=== PATIENT | female | born 1965 | race Caucasian/White ===

== ENCOUNTER 2017-09-26 04:55 | Inpatient (IN) | payer OTHER, MEDICARE ==
[~2017-09-26] VITALS: Ht 167.6 cm; Wt 100.4 kg
[2017-09-26] MEDS ORDERED: SODIUM CHLORIDE FLUSH 10ML SYR IVF ONE (05:30)
[2017-09-26] MEDS ORDERED: MORPHINE SULFATE 4 MG/ML, 1ML IVPush PRN ×2 (05:30→17:30)
[2017-09-26] MEDS ORDERED: SODIUM CHLORIDE 0.9% 1,000ML IVBOLUS ONE (05:30)
[2017-09-26] MEDS ORDERED: MORPHINE SULFATE 4 MG/ML, 1ML ONE (05:46)
[2017-09-26 05:57] LABS: BASOPHILS # (AUTO) 0.02 x10^3/uL (0-0.1); BASOPHILS % (AUTO) 0 % (0-1); EOSINOPHILS # (AUTO) 0.12 x10^3/uL (0-0.4); EOSINOPHILS % (AUTO) 1 % (1-7); LYMPHOCYTES # (AUTO) 1.54 x10^3/uL (1-3.4); LYMPHOCYTES % (AUTO) 16 % (22-44); MD NO; MEAN CORPUSCULAR HEMOGLOBIN 30.8 pg (27.0-34.8); MEAN CORPUSCULAR HGB CONC 33.9 g/dL (32.4-35.8); MEAN PLATELET VOLUME 8.2 fL (7.4-10.4); MONOCYTES # (AUTO) 0.79 x10^3/uL (0.2-0.8); MONOCYTES % (AUTO) 8 % (2-9); NEUTROPHILS # (AUTO) 7.48 x10^3/uL (1.8-6.8); NEUTROPHILS % (AUTO) 75 % (42-75); PLATELET COUNT 250 x10^3/uL (130-400); RED CELL DISTRIBUTION WIDTH 12.9 % (9.6-15.2)
[2017-09-26 06:06] LABS: ALANINE AMINOTRANSFERASE 41 U/L (12-78); ANION GAP 9 mmol/L (5-15); CALCIUM 9.4 mg/dL (8.5-10.1); CHLORIDE 109 mmol/L (98-107); CREATININE 1.34 mg/dL (0.55-1.02)
[2017-09-26 06:09] LABS: MICROSCOPIC INDICATED
[2017-09-26 06:10] LABS: CULTURE INDICATED? YES
[2017-09-26 06:11] LABS: ALKALINE PHOSPHATASE 65 U/L (45-117); BILIRUBIN,TOTAL 0.6 mg/dL (0.2-1.0); TOTAL PROTEIN 7.5 g/dL (6.4-8.2)
[2017-09-26 06:12] LABS: INTERNATIONAL NORMALIZED RATIO 0.96 (0.93-1.1)
[2017-09-26] MEDS ORDERED: OMNIPAQUE 350 MG/ML, 100ML BOTTLE ONE (06:45)
[2017-09-26] MEDS ORDERED: CEFTRIAXONE PMX 1GM/50ML 50 ML IV ONE (07:00)
[2017-09-26] MEDS ORDERED: CEFTRIAXONE PMX 1GM/50ML 50 ML ONE (07:12)
[2017-09-26] MEDS ORDERED: SODIUM CHLORIDE 0.9% 1,000 ML IV SCH (09:00)
[2017-09-26 09:22] VITALS: BP 128/76
[2017-09-26 09:30] VITALS: BP 128/76
[2017-09-26] MEDS ORDERED: morphine SULFATE 10 MG/ML, 1ML IVPush PRN ×2 (09:30→11:00)
[2017-09-26] MEDS: CEFTRIAXONE PMX 2GM/50ML 50 ML IV SCH (11:00)
[2017-09-26] MEDS ORDERED: ONDANSETRON 2MG/ML, 2ML IVPush PRN (11:00)
[2017-09-26] MEDS ORDERED: ONDANSETRON ODT 4 MG PO PRN (11:00)
[2017-09-26] MEDS: SODIUM CHLORIDE 0.9% 1,000 ML IV SCH ×2 (11:00→20:03)
[2017-09-26] MEDS ORDERED: ACETAMINOPHEN 325 MG TABLET PO PRN ×2 (11:00→17:30)
[2017-09-26] MEDS ORDERED: hydrALAzine 20 MG/ML, 1ML IVPush PRN (11:00)
[2017-09-26 11:11] LABS: FREE T4 (FREE THYROXINE) 0.95 ng/dL (0.76-1.46); THYROID STIMULATING HORMONE 0.717 mIU/L (0.358-3.740)
[2017-09-26 13:47] VITALS: BP 124/80
[2017-09-26] MEDS: morphine SULFATE 10 MG/ML, 1ML IVPush PRN ×2 (13:58→20:02)
[2017-09-26] MEDS ORDERED: MIDAZOLAM 1 MG/ML, 2ML ONE (16:45)
[2017-09-26] MEDS ORDERED: FENTANYL PF 250 MCG/5ML ONE (16:45)
[2017-09-26] MEDS ORDERED: DEXAMETHASONE 4 MG/ML, 1ML ONE (16:47)
[2017-09-26] MEDS ORDERED: PROPOFOL 10 MG/ML, 20ML ONE (16:47)
[2017-09-26] MEDS ORDERED: ONDANSETRON 2MG/ML, 2ML ONE (16:47)
[2017-09-26] MEDS ORDERED: OMNIPAQUE 350 MG/ML, 50 ML BOTTLE ONE (17:29)
[2017-09-26] MEDS ORDERED: OXYcodone 5 MG/5 ML ORAL.SOL UDC PO PRN (17:30)
[2017-09-26] MEDS ORDERED: ONDANSETRON ODT 8 MG PO PRN (17:30)
[2017-09-26] MEDS ORDERED: MEPERIDINE/PF 25MG/0.5ML IVPush PRN (17:30)
[2017-09-26] MEDS ORDERED: PROMETHAZINE 12.5 MG SUPP PR PRN (17:30)
[2017-09-26] MEDS ORDERED: FENTANYL PF 100 MCG/2ML IV PRN (17:30)
[2017-09-26] MEDS ORDERED: HYDROcodone/APAP 7.5-325MG/15ML UDC ONE (17:46)
[2017-09-26 20:09] VITALS: BP 115/80
[2017-09-26] MEDS: HYDROcodone/APAP 5/325 TABLET PO PRN (21:36)
[2017-09-27 01:48] VITALS: BP 108/74
[2017-09-27] MEDS: SODIUM CHLORIDE 0.9% 1,000 ML IV SCH ×2 (03:23→11:29)
[2017-09-27] MEDS: morphine SULFATE 10 MG/ML, 1ML IVPush PRN (03:23)
[2017-09-27 04:57] LABS: BASOPHILS # (AUTO) 0.02 x10^3/uL (0-0.1); BASOPHILS % (AUTO) 0 % (0-1); EOSINOPHILS # (AUTO) 0.21 x10^3/uL (0-0.4); EOSINOPHILS % (AUTO) 3 % (1-7); LYMPHOCYTES # (AUTO) 2.24 x10^3/uL (1-3.4); LYMPHOCYTES % (AUTO) 34 % (22-44); MD NO; MEAN CORPUSCULAR HEMOGLOBIN 31.1 pg (27.0-34.8); MEAN CORPUSCULAR HGB CONC 33.8 g/dL (32.4-35.8); MEAN PLATELET VOLUME 8.4 fL (7.4-10.4); MONOCYTES # (AUTO) 0.39 x10^3/uL (0.2-0.8); MONOCYTES % (AUTO) 6 % (2-9); NEUTROPHILS # (AUTO) 3.81 x10^3/uL (1.8-6.8); NEUTROPHILS % (AUTO) 57 % (42-75); PLATELET COUNT 249 x10^3/uL (130-400); RED BLOOD COUNT 5.02 x10^6/uL (3.82-5.3); RED CELL DISTRIBUTION WIDTH 13.3 % (9.6-15.2)
[2017-09-27 05:02] LABS: CHLORIDE 111 mmol/L (98-107)
[2017-09-27 05:09] LABS: ALANINE AMINOTRANSFERASE 33 U/L (12-78); ALBUMIN 3.8 g/dL (3.4-5.0); ALKALINE PHOSPHATASE 64 U/L (45-117); ANION GAP 9 mmol/L (5-15); BILIRUBIN,TOTAL 0.7 mg/dL (0.2-1.0); CALCIUM 8.8 mg/dL (8.5-10.1); CREATININE 1.06 mg/dL (0.55-1.02); TOTAL PROTEIN 7.4 g/dL (6.4-8.2)
[2017-09-27] MEDS: HYDROcodone/APAP 5/325 TABLET PO PRN ×2 (06:36→11:29)
[2017-09-27 07:39] VITALS: BP 131/82
[2017-09-27] MEDS: CEFTRIAXONE PMX 2GM/50ML 50 ML IV SCH (11:30)
== END 2017-09-27 15:05 | disposition left against medical advice (07) | DRG 853 ==
LOC: ED 06:03 → EDIP 06:51 → 3NE 07:55
PROVIDERS: ADMIT Hospitalist; ATTEND Internal Medicine
PROC: 0TC68ZZ Extirpation of Matter from Right Ureter, Via Natural or Artificial Opening Endoscopic (ICD-10-PCS; 2017-09-26)
PROC: BT1D1ZZ Fluoroscopy of Right Kidney, Ureter and Bladder using Low Osmolar Contrast (ICD-10-PCS; 2017-09-26)
PROC: 0T768DZ Dilation of Right Ureter with Intraluminal Device, Via Natural or Artificial Opening Endoscopic (ICD-10-PCS; principal; 2017-09-26 17:00)
DX: A41.9 Sepsis, unspecified organism (principal); N17.0 Acute kidney failure with tubular necrosis; N13.2 Hydronephrosis with renal and ureteral calculous obstruction; N39.0 Urinary tract infection, site not specified; E66.01 Morbid (severe) obesity due to excess calories; Z68.35 Body mass index [BMI] 35.0-35.9, adult; K59.00 Constipation, unspecified; Z80.8 Family history of malignant neoplasm of other organs or systems; Z88.0 Allergy status to penicillin
CPT/HCPCS: 36415; 74177; 74420; 80053; 81001; 82360; 83605; 83690; 83735; 84100; 84439; 84443; 84703; 85025; 85610; 87040; 87086; 88300; 93005; 96361; 96374; J0696; J1100; J2250; J2405; J2704; J3010; Q9967; C1758; C2617; J2270; J7030

== ENCOUNTER 2018-01-30 09:46 | Day surgery (SDC) | payer OTHER, MEDICARE ==
[~2018-01-30] VITALS: Ht 167.6 cm; Wt 98.0 kg
[2018-01-30 10:40] VITALS: BP 130/85
[2018-01-30] MEDS ORDERED: CYCL-259 PO (10:56)
[2018-01-30] MEDS ORDERED: ESCI20TA PO (10:56)
[2018-01-30] MEDS ORDERED: OXYC30TA66 PO (10:56)
[2018-01-30] MEDS ORDERED: TOPI200C6 PO (10:56)
[2018-01-30] MEDS ORDERED: GABA300C10 PO (10:56)
[2018-01-30] MEDS ORDERED: ACETAMINOPHEN 500 MG TABLET PO ONE (11:00)
[2018-01-30] MEDS ORDERED: LIDOCAINE-MPF 1%, 2ML INFIL ONE (11:00)
[2018-01-30] MEDS ORDERED: ONDANSETRON ODT 8 MG PO ONE (11:00)
[2018-01-30] MEDS ORDERED: ONDANSETRON ODT 8 MG ONE (11:10)
[2018-01-30] MEDS ORDERED: ACETAMINOPHEN 500 MG TABLET ONE (11:11)
[2018-01-30] MEDS: LACTATED RINGERS 1,000 ML IV SCH ×2 (11:13→17:40)
[2018-01-30] MEDS ORDERED: MIDAZOLAM 1 MG/ML, 2ML ONE ×2 (11:22→13:31)
[2018-01-30] MEDS ORDERED: FENTANYL PF 100 MCG/2ML ONE ×3 (11:22→13:24)
[2018-01-30] MEDS ORDERED: PROPOFOL 10 MG/ML, 20ML ONE (11:22)
[2018-01-30] MEDS ORDERED: SUCCINYLCHOLINE 20 MG/ML, 10ML ONE (11:22)
[2018-01-30] MEDS ORDERED: DEXAMETHASONE 4 MG/ML, 1ML ONE ×2 (11:22)
[2018-01-30] MEDS ORDERED: CEFAZOLIN 1,000 MG ONE (11:28)
[2018-01-30] MEDS ORDERED: ALBUTEROL/IPRATROPIUM 2.5MG/0.5MG, 3 ML NPPB PRN (12:00)
[2018-01-30] MEDS ORDERED: SCOPOLAMINE PATCH, 1.5MG PATCH.TD72 TD PRN (12:00)
[2018-01-30] MEDS ORDERED: OXYcodone 5 MG/5 ML ORAL.SOL UDC PO PRN (12:00)
[2018-01-30] MEDS ORDERED: hydrALAzine 20 MG/ML, 1ML IV PRN (12:00)
[2018-01-30] MEDS ORDERED: LORazepam 2 MG/ML, 1ML IVPush PRN (12:00)
[2018-01-30] MEDS ORDERED: MEPERIDINE/PF 25MG/0.5ML IVPush PRN (12:00)
[2018-01-30] MEDS ORDERED: MORPHINE SULFATE 4 MG/ML, 1ML IVPush PRN ×2 (12:00→16:00)
[2018-01-30] MEDS ORDERED: LABETALOL 5MG/ML, 20ML IV PRN (12:00)
[2018-01-30] MEDS ORDERED: OXYcodone 5 MG/5 ML ORAL.SOL UDC ONE ×2 (13:24→13:37)
[2018-01-30] MEDS: FENTANYL PF 100 MCG/2ML IV PRN ×2 (13:26→13:31)
[2018-01-30] MEDS ORDERED: HYDROmorphone 2 MG/ML, 1ML ONE (13:31)
[2018-01-30] MEDS: MIDAZOLAM 1 MG/ML, 2ML IV PRN ×2 (13:32→14:03)
[2018-01-30] MEDS: HYDROmorphone 1 MG/ML, 1ML IV PRN ×3 (13:39→13:56)
[2018-01-30] MEDS ORDERED: CYCLOBENZAPRINE 10 MG TABLET PO SCH (16:00)
[2018-01-30] MEDS ORDERED: HYDROcodone/APAP 5/325 TABLET PO PRN (16:00)
[2018-01-30] MEDS ORDERED: GABAPENTIN 300 MG CAPSULE PO SCH (16:00)
[2018-01-30] MEDS ORDERED: TOPIRAMATE 100 MG TABLET PO SCH (21:00)
[2018-01-30] MEDS ORDERED: OxyconTIN ER 15 MG TAB.ER PO SCH (21:00)
[2018-01-30] MEDS ORDERED: CITALOPRAM 20 MG TABLET PO SCH (21:00)
== END 2018-01-30 19:39 | disposition home or self-care (01) ==
LOC: OUT 09:46 → 4NOR 14:29 → OUT 19:39
PROVIDERS: ATTEND Surgery
DX: E04.2 Nontoxic multinodular goiter (principal); E03.9 Hypothyroidism, unspecified; G89.4 Chronic pain syndrome; Z87.39 Personal history of other diseases of the musculoskeletal system and connective tissue; Z98.890 Other specified postprocedural states; Z79.899 Other long term (current) drug therapy; Z88.0 Allergy status to penicillin
CPT/HCPCS: 60271; 88307; 88331; C1760; J0330; J0690; J1100; J1170; J2250; J2704; J3010; J3490; J7120; Q0162; G0378